=== PATIENT | male | born 1960 | race Caucasian/White ===

== ENCOUNTER 2016-06-07 14:45 | Outpatient (RCR) ==
[2016-05-13 02:27] VITALS: BMI 26.6
== END 2016-07-04 ==
PROVIDERS: ATTEND Neurological Surgery
DX: M54.12 Radiculopathy, cervical region (principal)
CPT/HCPCS: 97039

== ENCOUNTER 2016-06-13 10:00 | Outpatient (RCR) ==
[2016-05-13 02:27] VITALS: BMI 26.6
--- NOTE | 2016-06-07 11:08 | RS.OPPTDN ---
Subjective Date of Note: 06/05/16 Visit #: 2 Date of Evaluation: 05/18/16 Treatment Diagnosis: Neck pain and right shoulder Current Subjective/complaints:: Patient reports the neck is slightly better today. Pain Assessment - Pain Description Pain Location: R cervical/R UT Current Pain Intensity: 3/10 - Heat/Cryotherapy Treatment: Hot Pack (20 mins. prior to traction) - Traction Treatment Method: Mechanical, Intermittent, Cervical Patient Position: Supine Amount of Force Applied: 16-17# Hold Time: 30 secs. Rest Time: 5 secs. Duration of treatment: 20 mins. Interventions - Exercise/Activities/Manual Therapy Exercises/Activities: Patient doing cervical ROM independently. Total minutes of Exercise: 0 Manual Therapy: NA Total minutes of Manual Therapy: 0 HOME EXERCISE PROGRAM: Chin tucks,,gentle cervical AROM in PAIN FREE ROM. - Charges Total Direct Minutes: 0 Total Treatment Time: 40 Procedures billed for this date of service:: hp,traction Assessment: Tolerates traction today with out dsicomfort.He still presents with guarded cervical motion.He is compliant to recommendations for HEP,has good understanding of doing exercises in pain free ROM. Patient Education: Body/Joint mechanics, Home Exercise Program, Home Safety, Activity Modification, Education of Plan of Care Patient demonstrates compliance with HEP?: Yes Short Term Goals Goal #1: Worst pain rating 5/10 in cervical region. Goal to be met by: 06/02/16 Progress towards Goal:: Met Goal #2: CROM WFLs in all planes w/o increased pain. Goal to be met by: 06/02/16 Progress towards Goal:: Progressing Goal #3: Sleeps thru the night w/o neck pain awakening hiim. Goal to be met by: 06/02/16 Progress towards Goal:: Met Instructional Leader Goals Goal #1: Cervical flexion strength 4+/5 Goal to be met by: 06/16/16 Progress towards goal: No Change Goal #2: Eliminate radicular pain of the UEs Goal to be met by: 06/16/16 Progress towards goal: Progressing Goal #3: Independent with HEP Goal to be met by: 06/16/16 Progress towards goal: Met Goal #4: Worst neck pain 3/10 Goal to be met by: 06/16/16 (4/10 consistently the past 2-3 sessions.) Progress towards goal: No Change Plan PLAN OF CARE EXPIRES ON:: 06/16/16 ORDER # VISITS AND/OR THROUGH DATE: 06/16/2016 PLAN: Continue Plan of Care
--- NOTE | 2016-06-07 12:05 | RS.OPPTDN ---
Subjective Date of Note: 06/07/16 Visit #: 9 Date of Evaluation: 05/18/16 Treatment Diagnosis: Neck pain and right shoulder Current Subjective/complaints:: Reports his back pain affects his sleep,but the neck pain does not at this time.He requests the Laser today,feels this reduces the neck pain. Pain Assessment - Pain Description Pain Location: R cervical/R UT Current Pain Intensity: 3-4/10 - Treatment Modality: Class 4 Laser Parameters/Method Applied: 9 mins.for chronic cervical pain. Patient Position: Sitting - Heat/Cryotherapy Treatment: Hot Pack (20 mins. prior to Laser and traction.) - Traction Treatment Method: Mechanical, Intermittent, Cervical Patient Position: Supine Amount of Force Applied: 16-17# Hold Time: 30 secs. Rest Time: 5 secs. Duration of treatment: 20 mins. Traction Treatment Comment: Tolerates traction well today. Interventions - Exercise/Activities/Manual Therapy Exercises/Activities: Patient doing cervical ROM independently. Manual Therapy: NA HOME EXERCISE PROGRAM: Chin tucks,,gentle cervical AROM in PAIN FREE ROM. - Charges Total Direct Minutes: 9 Total Treatment Time: 49 Procedures billed for this date of service:: hp,traction,Laser Assessment: Patient tolerates traction today without elevated pain or discomfort.He is attentive to HEP,has good undestanding of HEP and joint protection.We will base his POC on the amount of relief the Laser gives him for the next 1-3 sessions,as he is approaching rehab potential otherwise. Patient Education: Education of diagnosis, Body/Joint mechanics, Home Exercise Program, Home Safety, Activity Modification, Education of Plan of Care Patient demonstrates compliance with HEP?: Yes Short Term Goals Goal #1: Worst pain rating 5/10 in cervical region. Goal to be met by: 06/02/16 Progress towards Goal:: Met Goal #2: CROM WFLs in all planes w/o increased pain. Goal to be met by: 06/02/16 Progress towards Goal:: Progressing Goal #3: Sleeps thru the night w/o neck pain awakening hiim. Goal to be met by: 06/02/16 Progress towards Goal:: Met Regroover Goals Goal #1: Cervical flexion strength 4+/5 Goal to be met by: 06/16/16 Progress towards goal: No Change Goal #2: Eliminate radicular pain of the UEs Goal to be met by: 06/16/16 Progress towards goal: Progressing Goal #3: Independent with HEP Goal to be met by: 06/16/16 Progress towards goal: Met Goal #4: Worst neck pain 08/11 Goal to be met by: 06/16/16 (3-4 10 today) Progress towards goal: Progressing Plan PLAN OF CARE EXPIRES ON:: 06/16/16 ORDER # VISITS AND/OR THROUGH DATE: 06/16/2016 PLAN: Continue Plan of Care
--- NOTE | 2016-06-09 12:02 | RS.OPPTDN ---
Subjective Date of Note: 06/09/16 Visit #: 10 Date of Evaluation: 05/18/16 Treatment Diagnosis: Neck pain and right shoulder Current Subjective/complaints:: Patient reports the neck is better today,no pain at current time,agrees to Laser treatment today. Pain Assessment - Pain Description Pain Location: R cervical/R UT Current Pain Intensity: 0 at rest - Treatment Modality: Class 4 Laser Parameters/Method Applied: 9 mins. to cervical/UT region for chronic neck pain. Patient Position: Sitting - Heat/Cryotherapy Treatment: Hot Pack (20 mins. prior to Laser and traction) - Traction Treatment Method: Mechanical (Tolerates well.), Intermittent, Cervical Patient Position: Supine Amount of Force Applied: 16-17# Hold Time: 30 secs. Rest Time: 5 secs. Duration of treatment: 20 mins. Interventions - Exercise/Activities/Manual Therapy Exercises/Activities: Patient doing cervical ROM independently. Manual Therapy: NA HOME EXERCISE PROGRAM: Chin tucks,,gentle cervical AROM in PAIN FREE ROM. - Charges Total Direct Minutes: 9 Total Treatment Time: 49 Procedures billed for this date of service:: hp,Laser,traction Assessment: Patient has less guarded posture today with cervical motion as his pain is lessened.He is attentive and compliant to recommendations for HEP,joint protection and pain control.We discussed as the Laser is reducing his pain,we will do a couple of sessions next week before D/C plan. Patient Education: Education of diagnosis, Body/Joint mechanics, Home Exercise Program, Home Safety, Activity Modification, Education of Plan of Care Patient demonstrates compliance with HEP?: Yes Short Term Goals Goal #1: Worst pain rating 5/10 in cervical region. Goal to be met by: 06/02/16 Progress towards Goal:: Met Goal #2: CROM WFLs in all planes w/o increased pain. Goal to be met by: 06/02/16 Progress towards Goal:: Progressing Goal #3: Sleeps thru the night w/o neck pain awakening hiim. Goal to be met by: 06/02/16 Progress towards Goal:: Met Snf Goals Goal #1: Cervical flexion strength 4+/5 Goal to be met by: 06/16/16 Progress towards goal: No Change Goal #2: Eliminate radicular pain of the UEs Goal to be met by: 06/16/16 Progress towards goal: Progressing Goal #3: Independent with HEP Goal to be met by: 06/16/16 Progress towards goal: Met Goal #4: Worst neck pain 08/11 Goal to be met by: 06/16/16 (3-4 10 today) Progress towards goal: Progressing Plan PLAN OF CARE EXPIRES ON:: 06/16/16 ORDER # VISITS AND/OR THROUGH DATE: 06/16/2016 PLAN: Continue Plan of Care
--- NOTE | 2016-06-13 10:44 | RS.OPPTDN ---
Subjective Date of Note: 06/13/16 Visit #: 11 Date of Evaluation: 05/18/16 Treatment Diagnosis: Neck pain and right shoulder Current Subjective/complaints:: Patient reports his pain has flared back up the last couple of days.He wants to do traction today,but no Laser to see how his pain level responds. Pain Assessment - Pain Description Pain Location: R cervical/R UT Pain Description: Dull, Aching Current Pain Intensity: 4-5/10 - Heat/Cryotherapy Treatment: Hot Pack (20 mins. in sitting ,prior to traction) - Traction Treatment Method: Mechanical, Intermittent, Cervical Patient Position: Supine Amount of Force Applied: 16-17# Hold Time: 30 secs. Rest Time: 5 secs. Duration of treatment: 20 mins. Traction Treatment Comment: Tolerates well. Interventions - Exercise/Activities/Manual Therapy Exercises/Activities: Patient doing cervical ROM independently. Total minutes of Exercise: 0 Manual Therapy: NA Total minutes of Manual Therapy: 0 HOME EXERCISE PROGRAM: Chin tucks,,gentle cervical AROM in PAIN FREE ROM. - Charges Total Direct Minutes: 0 Total Treatment Time: 40 Procedures billed for this date of service:: hp,traction Assessment: Patient approaching rehab potential,although his radiating pain into the UE's is now very infrequent ,but the neck pain varies dependent upon the amount of daily activity.He has good understanding of HEP as tolerated. Patient Education: Education of diagnosis, Body/Joint mechanics, Home Exercise Program, Home Safety, Activity Modification, Education of Plan of Care Patient demonstrates compliance with HEP?: Yes Short Term Goals Goal #1: Worst pain rating 5/10 in cervical region. Goal to be met by: 06/02/16 Progress towards Goal:: Met Goal #2: CROM WFLs in all planes w/o increased pain. Goal to be met by: 06/02/16 Progress towards Goal:: No Change Goal #3: Sleeps thru the night w/o neck pain awakening hiim. 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
--- NOTE | 2016-06-22 12:58 | RS.QUICKDC ---
Discharge from PT Date of Discharge: 06/22/16 Number of Visits: 11 Reason for Discharge: Patient called clinic,cancelled 12th visit due to other appts. regarding upcoming back surgery.He reports only temporary relief from PT sessions,understands the D/C plan.
== END 2016-07-04 ==
PROVIDERS: ATTEND Neurological Surgery
DX: M54.12 Radiculopathy, cervical region (principal)

== ENCOUNTER 2016-07-25 10:05 | Outpatient (CLI) | payer OTHER ==
[2016-05-13 02:27] VITALS: BMI 26.6
[2016-07-25 10:22] LABS: BASOPHILS % (AUTO) 0.2 % (0.0-3.0); EOSINOPHILS # (AUTO) 0.2 K/ul (0.0-0.7); HEMATOCRIT 28.4 % (42.0-52.0); IMMATURE GRANULOCYTE % (AUTO) 0.2 % (0.0-5.0); LYMPHOCYTES # (AUTO) 0.8 K/uL (0.60-3.4); LYMPHOCYTES % (AUTO) 9.5 (10.0-50.0); MEAN CORPUSCULAR HEMOGLOBIN 29.5 pg (27.0-31.0); MEAN CORPUSCULAR HGB CONC 35.2 (31.8-35.4); MEAN CORPUSCULAR VOLUME 83.8 fl (80.0-94.0); MONOCYTES # (AUTO) 1.4 K/uL (0.4-2.0); MONOCYTES % (AUTO) 17.1 (0-10); NEUTROPHILS # (AUTO) 5.6 K/ul (2.0-6.9); PLATELET COUNT 294 10^3/uL (140-440); RED BLOOD COUNT 3.39 10^6/ul (4.70-6.10); WHITE BLOOD COUNT 8.01 K/ul (4.2-10.2)
[2016-07-25 14:17] LABS: ADD URINE MICROSCOPIC NO; BILIRUBIN,URINE Negative (NEGATIVE); KETONES,URINE Negative (NEGATIVE); LEUKOCYTE ESTERASE ,URINE Negative (NEGATIVE); NITRITE,URINE Negative (NEGATIVE); PROTEIN,URINE Negative (NEGATIVE); URINE, BLOOD Negative (NEGATIVE)
== END 2016-07-25 10:06 | disposition home or self-care (01) ==
LOC: LAB 10:05 → NONPT 10:06
PROVIDERS: ATTEND Neurological Surgery
DX: M51.36 Other intervertebral disc degeneration, lumbar region (principal); Z47.89 Encounter for other orthopedic aftercare; R50.9 Fever, unspecified
CPT/HCPCS: 81001; 85025; 87086

== ENCOUNTER 2016-07-28 11:33 | Outpatient (CLI) ==
[2016-05-13 02:27] VITALS: BMI 26.6
--- NOTE | 2016-07-28 13:34 | DI ---
EXAM: Radiographs, lumbar spine HISTORY: Post laminectomy syndrome. COMPARISON: 11/23/2015. TECHNIQUE: Three views. FINDINGS: Pedicle screw and bakari fixation and laminectomy changes seen from L2-S1. Anterior interbo dy fusion changes seen at L4-5 and L5-S1. Interbody fusion changes seen at L2-3. Hardware appears intact. Curvature and alignment are normal. Vertebral body heights are maintained without fracture. Disc heights are normal at the nonoperative levels. Mild endplate osteophyte formation seen in th e lower thoracic and upper lumbar spine. Multilevel facet arthropathy is present. Sacral arcuate l arthur are intact. No acute fractures seen. Soft tissues are unremarkable. IMPRESSION: 1. Interval extension of the posterior fusion and laminectomy changes now from L2-S1. Hardware sofy ears intact. Stable appearance of the anterior fusion changes at L4-5 and L5-S1. 2. Stable degenerative changes.
== END 2016-07-28 11:34 | disposition home or self-care (01) ==
LOC: RAD 11:33
PROVIDERS: ATTEND Neurological Surgery
DX: M96.1 Postlaminectomy syndrome, not elsewhere classified (principal)

== ENCOUNTER 2016-12-26 10:14 | Outpatient (CLI) | payer OTHER ==
[2016-05-13 02:27] VITALS: BMI 26.6
--- NOTE | 2016-12-26 11:20 | DI ---
EXAM: Radiographs, lumbar spine HISTORY: Lumbar radiculopathy. COMPARISON: 07/28/2016. TECHNIQUE: Three views. FINDINGS: Pedicle screw and bakari fixation seen from L2-S1. Anterior discectomy and fusion changes s een at L4-5 and L5-S1. Interbody fusion material also seen at L2-3. There is probably osseous inco rporation across L4-5 and L5-S1. No osseous incorporation seen across L2-3. Laminectomy changes ar e seen from L2-S1. Alignment is normal. Vertebral body heights are maintained. The L1-2 and L3-4 disc spaces are normal. Mild endplate osteophyte formation noted. Moderate facet arthropathy prese nt, greater in the lower lumbar spine. No acute fractures seen. Soft tissues are unremarkable. Si nce the prior study, there has been no significant interval change. IMPRESSION: Stable postoperative and degenerative changes.
== END 2016-12-26 10:15 | disposition home or self-care (01) ==
LOC: RAD 10:14
PROVIDERS: ATTEND Neurological Surgery
DX: M54.16 Radiculopathy, lumbar region (principal)